=== PATIENT | female | born 1950 | race Caucasian/White ===

== ENCOUNTER → 2017-02-01 | Outpatient (CLI) | payer MEDICARE ==
[~2017-02-01] MED LIST: ALDACTAZIDE 25/1 TA1 PO; AMLODIPINE-BENA1 CA2 PO; BENADRYL25 M3 PO; CEPHALEXIN500 M1 PO; CONTRAVE ER 8-1 EACH PO; COUMADIN5 MG PO; COUMADIN7.5 MG PO; GLYBURIDE2.5 M1 PO; HYDROCODON-ACE1 EACH PO; HYDROCODONE-APA1 T56 PO; LANSOPRAZOLE30 M3 PO; LANSOPRAZOLE30 MG PO; LOTREL 5-20 MG1 CAP PO; METFORMIN HCL1000 M1 PO; METFORMIN HCL500 M1 PO; PRAVASTATIN SOD40 MG PO; PREDNISONE PO; QUETIAPINE FUM100 MG PO; SEROQUEL PO; SYMBICORT INH; TRAMADOL HCL50 M2 PO
--- NOTE | ~2017-02-01 | MY11 ---
[facility] A Service [facility] RADIOLOGY TEXT RESULTS PATIENT: ROZ ONEIL LOCATION: [facility] : 46 UNIT #: [id number] AGE: [address]: Edinson Huffman MD SEX: F ORDER DR: [id number] [address] [address] [id number] O MR#: [id number] Acc #: [id number] NAME: ROZ ONEIL : 1950 SEX: F STUDY DATE/TIME: 02/01/2017 13:49 UNIT: [facility] ROOM: STUDY DESCRIPTION: MY Mammogram Screening Dig [place] Attending Physician: Edinson Huffman M.D. Referring Physician: Edinson Huffman M.D. Ordering Physician: Edinson Huffman M.D. Primary Care Physician: Edinson Huffman M.D. MEDICAL IMAGING REPORT This report is preliminary unless electronic signature is present. EXAM Digital screening mammogram 02/01/2017 HISTORY 66-year-old woman with no risk elevation. Prior excisional right breast biopsy. Annual screen. COMPARISON STUDIES Comparison 07/26/2006, 11/26/2007 FINDINGS Digital imaging of each breast was completed utilizing screening protocol. Biopsy marker was placed right breast. Review includes FDA-approved CAD device. Breast parenchyma is predominantly fatty replaced. Secretory calcifications are noted slightly more prominent on the right. I see no developing mass. There are no suspicious microcalcifications and no interval occurring architectural distortion. IMPRESSION Benign mammogram. Annual screening recommended. BIRADS II Patients over the age of 40 are entered into a reminder system with target due date for the next mammogram. A result letter will also be sent to the patient. BIRADS: 2 - Benign finding Dictated by... Kj Blair M.D. THIS IS AN ELECTRONICALLY VERIFIED REPORT Kj Blair M.D. at 02/08/2017 7:12 AM [facility] A Service of [facility] RADIOLOGY TEXT RESULTS PATIENT: ROZ ONEIL LOCATION: [facility] #: [id number] : 46 UNIT #: [id number] AGE: [address]: Edinson Huffman MD SEX: F ORDER DR: TD: 02/01/2017 17:01 JOB #: [id number] MEDICAL IMAGING REPORT Page 1 of 1
== END | disposition home or self-care (01) ==
LOC: SMAM 13:11
DX: Z12.31 Encounter for screening mammogram for malignant neoplasm of breast (principal); Z98.890 Other specified postprocedural states
CPT/HCPCS: G0202